=== PATIENT | female | born 1940 | race Caucasian/White ===

== ENCOUNTER 2020-07-18 17:44 | Inpatient (IN) | payer MEDICARE, OTHER, SELFPAY ==
[2020-07-18 17:48] VITALS: BP 156/75; PULSE 89; RESP 22; TEMP 37.1; O2SAT 99; BMI 27.4
[2020-07-18 18:50] LABS: Add Manual Diff / Slide Review NO; Basophils Absolute Auto 0 /uL (0-100); Basophils Percent Auto 0.2 % (0-2); Eosinophils Absolute Auto 0 /uL (0-450); Eosinophils Percent Auto 0.1 % (2-4); Hematocrit 32.2 % (36-46); Hemoglobin 10.5 g/dL (12.0-16.0); Lymphocytes Absolute Auto 400 /uL (1100-4500); Lymphocytes Percent Auto 2.8 % (25-40); Mean Corpuscular HGB Conc 32.7 % (30-36); Mean Corpuscular Volume 82.5 fL (80-100); Monocytes Absolute Auto 400 /uL (0-900); Monocytes Percent Auto 2.7 % (3-14); Neutrophils Absolute Auto 15100 /uL (1500-7000); Neutrophils Percent Auto 94.2 % (50-75); Red Cell Distribution Width 16.9 % (11.6-14.8)
[2020-07-18 19:00] LABS: Alanine Aminotransferase 571 IU/L (<35); Albumin 4.9 g/dL (3.5-5.0); Albumin Globulin Ratio 1.5 (1.0-2.8); Alkaline Phosphatase 183 U/L (38-126); BUN Creatinine Ratio 22.6 (6-22); Bilirubin Total 1.9 mg/dL (0.2-1.3); Blood Urea Nitrogen 14 mg/dL (7-17); Carbon Dioxide 25 mmol/L (22-32); Chloride 97 mmol/L (98-107); Estimated Glomerular Filt Rate > 60.0 mL/min (>60); Globulin 3.3 g/dL (1.7-4.1); Glucose 157 mg/dL (80-110); HEMOLYSIS < 15 (0-50); Potassium 4.1 mmol/L (3.4-5.1); Sodium 135 mmol/L (137-145); Total Protein 8.2 g/dL (6.3-8.2)
[2020-07-18 19:08] LABS: Aspartate Aminotransferase 884 IU/L (14-36)
--- NOTE | 2020-07-18 19:19 | ED.ABDPAIN ---
HPI - Abdominal Pain General Chief Complaint: Abdominal Pain Stated Complaint: thinks bleeding ulcer Time Seen by Provider: 07/18/20 18:54 Source: patient Mode of arrival: Ambulatory History of Present Illness HPI narrative: Patient complains 1 week of epigastric dull pain 6/10 waxing and waning. Has had vomiting 1 episode today. No diarrhea. No black or bloody stools. No dizziness. No chest pain no back pain. No prior history ulcers or acid reflux or endoscopy of the stomach. Colonoscopy years ago unremarkable per patient. No syncope. No cough cold congestion fever chills. No prior history of bowel obstruction. Pain is worse with palpation and hurts to take deep breath because epigastric pain. Causes shortness of breath. Related Data Home Medications Medication Instructions Recorded Confirmed LEVOTHYROXINE SODIUM (Synthroid) 0 PO Q DAY #0 08/01/08 Sertraline Hydrochloride (Zoloft) 0 PO Q DAY #0 08/01/08 [AVISTA] Q DAY #0 08/01/08 Allergies Allergy/AdvReac Type Severity Reaction Status Date / Time No Known Drug Allergies Allergy Verified 07/18/20 17:57 Review of Systems Review of Systems Narrative: GENERAL: Denies chills, fatigue, malaise, fever, sweats. HEENT: Denies sinus pain, ear pain, sore throat, difficulty swallowing, dizziness. RESPIRATORY: Complains of dyspnea, denies cough, wheezing, hemoptysis, sputum. CARDIOVASCULAR: Denies chest pain, palpitations, orthopnea, edema, GASTROINTESTINAL: Complains nausea, vomiting, abdominal pain, denies diarrhea, constipation, melena. : Denies dysuria, frequency, incontinence, hematuria, urinary retention. MUSCULOSKELETAL: denies weakness, joint pain, or bony pain SKIN: Denies rash, skin lesions NEUROLOGIC: Denies weakness, headache, numbness, change in speech, confusion, seizures, incoordination. PSYCHIATRIC: No concerning psychosocial issues. ROS Unobtainable: All systems reviewed & are unremarkable except as noted in HPI and below Patient History Medical History (Updated 07/19/20 @ 05:16 by JAZMIN Jaime) Alcohol dependence (Acute) Depression (Chronic) Essential hypertension (Chronic) HLD (hyperlipidemia) (Chronic) Surgical History (Updated 07/19/20 @ 05:16 by JAZMIN Jaime) Hx of cholecystectomy (Acute) Social History household members: none Smoking Status: Former smoker Smoking Status: Former smoker alcohol intake frequency: 3 or more drinks per day Alcohol type: wine and hard liquor Substance Use Type: does not use Exam Narrative Exam Narrative: GENERAL: patient appears stated age. Well-nourished, well-developed patient, in no distress, not toxic HEAD: Atraumatic. Normocephalic. EYES: Pupils equal round and reactive. Extraocular motions intact. No scleral icterus. No injection or drainage. ENT: Nose without bleeding, purulent drainage. Throat without erythema, tonsillar hypertrophy or exudate. Airway patent. NECK: Trachea midline. Non tender CARDIOVASCULAR: Regular rate and rhythm without murmurs, gallops, or rubs. RESPIRATORY: Clear to auscultation. Breath sounds equal bilaterally. No wheezes, rales, or rhonchi. GASTROINTESTINAL: Abdomen soft, reproducible tenderness epigastric area. no peritoneal signs, nondistended. nurse Hina at bedside, hemoccult neg, brown stool on glove, no bright red blood on glove EXTREMITIES: No edema or joint tenderness. BACK: Nontender without deformity or crepitance. No flank tenderness. NEURO: AOx4. SKIN: No rash or erythema of visible areas PSYCH: Not anxious, is cooperative Initial Vital Signs Initial Vital Signs: Vital Signs Temperature 98.7 F 07/18/20 17:48 Pulse Rate 89 07/18/20 17:48 Respiratory Rate 22 07/18/20 17:48 Blood Pressure 156/75 H 07/18/20 17:48 Pulse Oximetry 99 07/18/20 17:48 Course Course Course Narrative: Patient before admission started becoming restless and anxious. Tremulous. Likely alcohol withdrawal. Patient admits now more alcohol/1/liquor per night averaging 6 glasses per night. Last alcohol consumption 24 hours ago Decision to Admit Date: 07/18/20 Decision to Admit time: 21:37 Orders Ordered: ED Orders 07/18/20 20:42 Ammonia (NH3) Stat Acetaminophen (Tylenol) 650 mg PO Q6HR PRN PRN Reason: Fever/Mild Pain (1-3) Last Admin: 07/19/20 01:11 Dose: 650 mg Documented by: DANA Enoxaparin Sodium (Lovenox) 40 mg SUBCUT DAILY [facility] Folic Acid (Folic Acid) 1 mg PO DAILY [facility] Lorazepam (Ativan) 1 mg IV CIWAPRN PRN; Protocol PRN Reason: Alcohol Withdrawal Multivitamins (Tab-A-Ronaldo) 1 tab PO DAILY [facility] Naloxone HCl (Narcan) 0.2 mg IV Q2MIN PRN PRN Reason: Opiate Reversal Ondansetron HCl (Zofran) 4 mg IV Q6HR PRN PRN Reason: Nausea And Vomiting Pantoprazole Sodium (Protonix) 20 mg PO 0600 [facility] Thiamine HCl (Vitamin B-1) 100 mg PO DAILY [facility] Stop: 07/22/20 09:01 Discontinued Medications Al Hydrox/Mg Hydrox/Simethicone 20 ml/ Lidocaine HCl 15 ml 0 ml PO NOW ONE Stop: 07/18/20 19:22 Last Admin: 07/18/20 20:12 Dose: 10 ml Documented by: YESY Sodium Chloride (Normal Saline 0.9%) 1,000 mls @ 1,000 mls/hr IV BOLUS ONE Stop: 07/18/20 20:19 Last Infusion: 07/18/20 22:16 Dose: 1,000 mls/hr Documented by: Admin: 07/18/20 20:12 Dose: 1,000 mls/hr Documented by: YESY Magnesium Sulfate 2 gm/ Folic Acid 1 mg/ Thiamine HCl 100 mg / Multivitamins 10 ml/ Sodium Chloride 1,015.2 mls @ 125 mls/hr IV NOW ONE Stop: 07/19/20 04:49 Last Admin: 07/18/20 20:54 Dose: 125 mls/hr Documented by: YESY Lorazepam (Ativan) 1 mg IV NOW ONE Stop: 07/18/20 20:39 Last Admin: 07/18/20 20:42 Dose: 1 mg Documented by: YESY Ondansetron HCl (Zofran) 4 mg IV NOW ONE Stop: 07/18/20 19:21 Last Admin: 07/18/20 20:12 Dose: 4 mg Documented by: YESY Reevaluation(s) Reevaluation #1: Patient much more comfortable after Ativan. Not restless anxious or tremulous or sweating Time: 21:37 Consultations Consultation #1: Spoke with Tiffany israel, hospitalist, will admit, at this time white cell count nonspecific but may be demargination due to pain and withdrawal. Still awaiting urinalysis Time: 21:37 Vital Signs Vital signs: Vital Signs - 8 hr 07/18/20 17:48 07/18/20 20:32 Temperature 98.7 F Pulse Rate 89 105 H Respiratory Rate 22 22 Blood Pressure 156/75 H 138/62 Pulse Oximetry 99 93 MDM - Abdominal Pain Differential Diagnosis Differential diagnosis: Likely abdominal pain, diverticulitis, pancreatitis, small bowel obstruction and other (Gastritis/GERD) Lab Data Attestation: I reviewed the patient's lab results. Result diagrams: 07/18/20 18:38 07/18/20 18:38 Labs: Lab Results 07/18/20 07/18/20 07/18/20 Range/Units 18:38 18:38 18:38 WBC 16.0 H (4.5-11.0) X10^3/uL RBC 3.90 L (4.0-5.2) X10^6/uL Hgb 10.5 L (12.0-16.0) g/dL Hct 32.2 L (36-46) % MCV 82.5 (80-100) fL MCH 27.0 (26-34) PG MCHC 32.7 (30-36) % RDW 16.9 H (11.6-14.8) % Plt Count 184 (150-400) X10^3/uL Neut % (Auto) 94.2 H (50-75) % Lymph % (Auto) 2.8 L (25-40) % [place] % (Auto) 2.7 L (3-14) % Eos % (Auto) 0.1 L (2-4) % Baso % (Auto) 0.2 (0-2) % Neut # (Auto) 21152 H (6675-5186) /uL Lymph # (Auto) 400 L (4791-9762) /uL [place] # (Auto) 400 (0-900) /uL Eos # (Auto) 0 (0-450) /uL Baso # (Auto) 0 (0-100) /uL PT Cancelled INR Cancelled APTT Cancelled Sodium 135 L (137-145) mmol/L Potassium 4.1 (3.4-5.1) mmol/L Chloride 97 L (98-107) mmol/L Carbon Dioxide 25 (22-32) mmol/L BUN 14 (7-17) mg/dL Creatinine 0.62 (0.52-1.04) mg/dL Estimated GFR > 60.0 (>60) mL/min BUN/Creatinine Ratio 22.6 H (6-22) Glucose 157 H (80-110) mg/dL Calcium 10.0 (8.4-10.2) mg/dL Total Bilirubin 1.9 H (0.2-1.3) mg/dL AST 884 H (14-36) IU/L ALT 571 H (<35) IU/L Alkaline Phosphatase 183 H (38-126) U/L Ammonia (9-30) umol/L Total Creatine Kinase (30-135) U/L CK-MB (CK-2) CK-MB (CK-2) Rel Index Troponin I (0.01-0.034) ng/mL Total Protein 8.2 (6.3-8.2) g/dL Albumin 4.9 (3.5-5.0) g/dL Globulin 3.3 (1.7-4.1) g/dL Albumin/Globulin Ratio 1.5 (1.0-2.8) 07/18/20 07/18/20 07/18/20 Range/Units 18:38 19:27 20:42 WBC (4.5-11.0) X10^3/uL RBC (4.0-5.2) X10^6/uL Hgb (12.0-16.0) g/dL Hct (36-46) % MCV (80-100) fL MCH (26-34) PG MCHC (30-36) % RDW (11.6-14.8) % Plt Count (150-400) X10^3/uL Neut % (Auto) (50-75) % Lymph % (Auto) (25-40) % [place] % (Auto) (3-14) % Eos % (Auto) (2-4) % Baso % (Auto) (0-2) % Neut # (Auto) (3765-4511) /uL Lymph # (Auto) (4712-2521) /uL [place] # (Auto) (0-900) /uL Eos # (Auto) (0-450) /uL Baso # (Auto) (0-100) /uL PT 11.6 INR 1.0 APTT 28 Sodium (137-145) mmol/L Potassium (3.4-5.1) mmol/L Chloride (98-107) mmol/L Carbon Dioxide (22-32) mmol/L BUN (7-17) mg/dL Creatinine (0.52-1.04) mg/dL Estimated GFR (>60) mL/min BUN/Creatinine Ratio (6-22) Glucose (80-110) mg/dL Calcium (8.4-10.2) mg/dL Total Bilirubin (0.2-1.3) mg/dL AST (14-36) IU/L ALT (<35) IU/L Alkaline Phosphatase (38-126) U/L Ammonia 12 (9-30) umol/L Total Creatine Kinase 70 (30-135) U/L CK-MB (CK-2) TNP CK-MB (CK-2) Rel Index TNP Troponin I < 0.012 (0.01-0.034) ng/mL Total Protein (6.3-8.2) g/dL Albumin (3.5-5.0) g/dL Globulin (1.7-4.1) g/dL Albumin/Globulin Ratio (1.0-2.8) Imaging Data Chest x-ray: Radiologist's Impression: [place] [address] XRay Report Signed Patient: Marcelo Paniagua#: [id number] : 2Acct:[id number] Age/Sex: 79 / FDate of Service: 07/18/20 Loc: ED Accession Number: [id number] Procedure: XR chest 1V Ordering Provider: Irineo Hollins MD PROCEDURE: XR CHEST 1V INDICATIONS: Short of breath TECHNIQUE: One view of the chest was acquired. COMPARISON: None. FINDINGS: Surgical changes and devices: None. Lungs and pleura: No acute consolidation. Mild central perihilar interstitial prominence is noted, which is nonspecific. No pleural effusions or pneumothorax. Mediastinum: Mediastinal contours appear normal. Heart size is normal. Bones and chest wall: No suspicious bony lesions. Overlying soft tissues appear unremarkable. IMPRESSION: Mild central perihilar interstitial prominence is nonspecific but may be related to mild pulmonary vascular congestion. Dictated by: Lucho Arenas M.D. on 07/18/2020 at 19:52 Approved by: Lucho Arenas M.D. on 07/18/2020 at 19:53 CT scan - abdomen/pelvis: Radiologist's Impression: [address] [address] [address] Scan Report Signed Patient: Luzma PaniaguaMR#: [id number] : 2Acct:[id number] Age/Sex: 79 / FDate of Service: 07/18/20 Loc: ED Accession Number: [id number] Procedure: CT abdomen pelvis w con Ordering Provider: Irineo Hollins MD PROCEDURE: CT ABDOMEN PELVIS W CON INDICATIONS: IV contrast only/epigastric pain TECHNIQUE: After the administration of intravenous contrast, 5 mm thick sections acquired from the diaphragm to the symphysis. 5 mm coronal and sagittal reformats were acquired. For radiation dose reduction, the following was used: automated exposure control, adjustment of mA and/or kV according to patient size. COMPARISON: None. FINDINGS: Image quality: Excellent. ABDOMEN: Lung bases: Lung bases are clear. Heart size is normal. Solid organs: Liver is normal in size and enhancement. The gallbladder is surgically absent. Mild dilatation of the common bile duct and the central intrahepatic biliary ducts is most likely secondary to prior cholecystectomy. Pancreas enhances normally. Spleen is normal in size and enhancement. No adrenal nodules. Kidneys demonstrate normal size and enhancement, without hydronephrosis. Subcentimeter hypodensities in both kidneys are too small to characterize but most likely represent cysts. Peritoneum and bowel: A few diverticula are seen in the colon without signs of acute diverticulitis. Mild thickening of the colon wall may be secondary to underdistention or mild colitis. No free fluid or air. Nodes and vessels: No retroperitoneal or mesenteric adenopathy by size criteria. Aorta and inferior vena cava are normal in size. Mild atherosclerotic calcifications are seen in the aorta. Miscellaneous: No ventral hernias. PELVIS: Genitourinary: Bladder wall thickness is normal. The uterus is normal in size. No adnexal mass is seen. Miscellaneous: No inguinal hernias or adenopathy. Bones: No suspicious bony lesions. No vertebral body compression fractures. Degenerative changes are seen in the pubic symphysis and the included spine. IMPRESSION: 1. Status post cholecystectomy. Mild dilatation of the intrahepatic and extrahepatic bile ducts is most likely secondary to the prior cholecystectomy, but correlation with clinical laboratory findings is recommended to exclude obstruction. 2. Mild thickening of the wall the colon may be related to underdistention or mild nonspecific colitis. Dictated by: Lucho Arenas M.D. on 07/18/2020 at 20:03 Approved by: Lucho Arenas M.D. on 07/18/2020 at 20:08 ECG Data Attestation: I personally reviewed and interpreted this ECG as follows: Interpretation: Normal sinus rhythm no ST elevation. MDM Narrative Medical decision making narrative: Appropriate for admission. Patient had a drive here from [facility]. No way home. Also during course of stay patient became a little confused likely alcohol withdrawal. However mentating and awake alert oriented x4. CIWA 15 Discharge Plan Departure Patient Disposition: Admitted as Observation Clinical Impression: Abdominal pain Qualifiers: Abdominal location: epigastric Qualified Code(s): R10.13 - Epigastric pain Alcohol withdrawal Qualifiers: Complication of substance-induced condition: with unspecified complication Qualified Code(s): F10.239 - Alcohol dependence with withdrawal, unspecified Discharge Date/Time: 07/18/20 22:39 Admit Date/Time: 07/18/20 20:46 Admit Provider: Ingris Israel
[2020-07-18 19:22] LABS: Platelet Count 184 X10^3/uL (150-400)
[2020-07-18 19:23] LABS: Creatine Kinase 70 U/L (30-135)
--- NOTE | 2020-07-18 19:31 | DI.CT.S_ITS ---
PROCEDURE: CT ABDOMEN PELVIS W CON INDICATIONS: IV contrast only/epigastric pain TECHNIQUE: After the administration of intravenous contrast, 5 mm thick sections acquired from the diaphragm to the symphysis. 5 mm coronal and sagittal reformats were acquired. For radiation dose reduction, the following was used: automated exposure control, adjustment of mA and/or kV according to patient size. COMPARISON: None. FINDINGS: Image quality: Excellent. ABDOMEN: Lung bases: Lung bases are clear. Heart size is normal. Solid organs: Liver is normal in size and enhancement. The gallbladder is surgically absent. Mild dilatation of the common bile duct and the central intrahepatic biliary ducts is most likely secondary to prior cholecystectomy. Pancreas enhances normally. Spleen is normal in size and enhancement. No adrenal nodules. Kidneys demonstrate normal size and enhancement, without hydronephrosis. Subcentimeter hypodensities in both kidneys are too small to characterize but most likely represent cysts. Peritoneum and bowel: A few diverticula are seen in the colon without signs of acute diverticulitis. Mild thickening of the colon wall may be secondary to underdistention or mild colitis. No free fluid or air. Nodes and vessels: No retroperitoneal or mesenteric adenopathy by size criteria. Aorta and inferior vena cava are normal in size. Mild atherosclerotic calcifications are seen in the aorta. Miscellaneous: No ventral hernias. PELVIS: Genitourinary: Bladder wall thickness is normal. The uterus is normal in size. No adnexal mass is seen. Miscellaneous: No inguinal hernias or adenopathy. Bones: No suspicious bony lesions. No vertebral body compression fractures. Degenerative changes are seen in the pubic symphysis and the included spine. IMPRESSION: 1. Status post cholecystectomy. Mild dilatation of the intrahepatic and extrahepatic bile ducts is most likely secondary to the prior cholecystectomy, but correlation with clinical laboratory findings is recommended to exclude obstruction. 2. Mild thickening of the wall the colon may be related to underdistention or mild nonspecific colitis. Dictated by: Lucho Arenas M.D. on 07/18/2020 at 20:03 Approved by: Lucho Arenas M.D. on 07/18/2020 at 20:08
--- NOTE | 2020-07-18 19:32 | DI.RAD.S_ITS ---
PROCEDURE: XR CHEST 1V INDICATIONS: Short of breath TECHNIQUE: One view of the chest was acquired. COMPARISON: None. FINDINGS: Surgical changes and devices: None. Lungs and pleura: No acute consolidation. Mild central perihilar interstitial prominence is noted, which is nonspecific. No pleural effusions or pneumothorax. Mediastinum: Mediastinal contours appear normal. Heart size is normal. Bones and chest wall: No suspicious bony lesions. Overlying soft tissues appear unremarkable. IMPRESSION: Mild central perihilar interstitial prominence is nonspecific but may be related to mild pulmonary vascular congestion. Dictated by: Lucho Arenas M.D. on 07/18/2020 at 19:52 Approved by: Lucho Arenas M.D. on 07/18/2020 at 19:53
[2020-07-18 19:36] LABS: Troponin I < 0.012 ng/mL (0.01-0.034)
[2020-07-18 19:41] LABS: Prothrombin Time 11.6 SECONDS (10.1-12.7)
[2020-07-18 19:44] LABS: PTT Partial Thromboplastin Tim 28 SECONDS (26.4-36.2)
[2020-07-18] MEDS: MAG HYDROX/ALUMINUM/SIMETH SUS 20 ML, LIDOCAINE VISCOUS 2% 15 ML PO (20:12)
[2020-07-18] MEDS: SODIUM CHLORIDE 0.9% 1,000 ML 1000 ML IV (20:12)
[2020-07-18] MEDS: ONDANSETRON 4 MG/2 ML INJ IV (20:12)
[2020-07-18 20:32] VITALS: BP 138/62; PULSE 105; RESP 22; O2SAT 93
[2020-07-18] MEDS: LORazepam 2 MG/ML INJ 1 MG IV (20:42)
[2020-07-18] MEDS: MAGNESIUM SULFATE 2 GM, FOLIC ACID 1 MG, THIAMINE 100 MG, MULTIVITAMIN 10 ML in SODIUM ... IV (20:54)
[2020-07-18 21:12] VITALS: BP 141/62; PULSE 100; RESP 20; O2SAT 97
[2020-07-18 21:14] LABS: Ammonia (NH3) 12 umol/L (9-30)
[2020-07-18 21:34] LABS: COVID19 -Nasal RAPID Negative (Negative)
--- NOTE | 2020-07-18 22:07 | PC.NURSE ---
customer sales specialist at bedside for eval
[2020-07-18 22:38] VITALS: BP 133/60; PULSE 98; RESP 22; O2SAT 98
[2020-07-18 22:43] VITALS: BMI 38.8
[2020-07-18 23:53] VITALS: O2SAT 94
[2020-07-19] VITALS (12 sets, daily range): BP systolic 122–147; BP diastolic 58–67; PULSE 80–98; RESP 12–36; TEMP 36–37.5; O2SAT 94–99
[2020-07-19] MEDS: ACETAMINOPHEN 325 MG TABLET 650 MG PO ×2 (01:11→11:34)
[2020-07-19 01:58] LABS: Bacteria Urine None Seen; WBC Urine None Seen (0-5/HPF)
[2020-07-19 02:12] LABS: Culture Indicated Urine Cult Not Indicated; RBC Urine 0-1/HPF (0-5/HPF)
--- NOTE | 2020-07-19 05:03 | P.HP_ITS ---
History of Present Illness History of Present Illness Date Patient Seen: 07/18/20 Time Patient Seen: 22:15 Chief complaint: thinks bleeding ulcer Narrative: Luzma Oquendo is a pleasant 79 y.o. female resident of [facility] with hypertension, hyperlipidemia, hypothyroidism and depression who presented with abdominal pain and had one episode of vomiting while in the ED. She states she had one isolated dark stool 2 weeks ago. She thought she may have a stomach ulcer. During her visit with the ED provider, she began to tremor, then admitted to the provider that she was a heavy drinker and had not drank in a day and a half and was diagnosed with alcohol withdrawal. She states she has depression and that with the COVID-19 social distancing, her drinking has worsened. She denies fever, sweats or chills, shortness of breath, chest pain, dysurea, diarrhea or constipation. In the ED the CT of the abdomen and chest reported possible mild colitis, but did not report any ulcerations. Temperature was 98.9?, blood pressure 142/64, heart rate 90 respiratory rate of 12 oxygen saturation 97% on room air, she weighs 102.6 kg BMI of 38.8. She does have a elevated WBC at 16,000, RBC 3.9, hemoglobin 10.5, hematocrit 32.2, platelet count 184, she does have a significant left shift with a neutrophil count of 15,000, coag studies are normal, sodium 135, potassium 4.1, chloride 97, bicarb 25, BUN 14, creatinine 0.62, GFR is greater than 60, she has a glucose of 157, total bilirubin is 1.9, AST 884, ALT 571, alk-phos 183, ammonia is 12, lipase is pending, covid -19 is negative, urinalysis is negative for a UTI. Patient History Medical History (Updated 07/19/20 @ 05:16 by JAZMIN Jaime) Alcohol dependence (Acute) Depression (Chronic) Essential hypertension (Chronic) HLD (hyperlipidemia) (Chronic) Surgical History (Updated 07/19/20 @ 05:16 by JAZMIN Jaime) Hx of cholecystectomy (Acute) Family & Social History Social History: household members none Prior Living Arrangements House Safety & Behavioral: Feels Safe in Current Yes Environment Been Physically Hurt or No Threatened By a Person Suicidal Ideation Description Vague Suicide Plan Description No Plan Tobacco & Substance use: Smoking Status Former smoker alcohol intake frequency 3-6 or more drinks per day Substance Use Type does not use Meds Home Medications and Allergies Home Medications Medication Instructions Recorded Confirmed Type LEVOTHYROXINE SODIUM (Synthroid) 0 PO Q DAY #0 08/01/08 History Sertraline Hydrochloride (Zoloft) 0 PO Q DAY #0 08/01/08 History [AVISTA] Q DAY #0 08/01/08 History Allergies Allergy/AdvReac Type Severity Reaction Status Date / Time No Known Drug Allergies Allergy Verified 07/18/20 17:57 Review of Systems Review of Systems ROS: Yes All systems reviewed with the patient and are negative except as otherwise documented Exam Vital Signs (past 8 hours): - 07/18/20 21:12 07/18/20 22:38 07/18/20 23:53 Temperature Pulse Rate 100 H 98 H Respiratory Rate 20 22 Blood Pressure 141/62 H 133/60 Pulse Oximetry 97 98 94 07/19/20 00:38 07/19/20 04:00 Temperature 98.4 F 98.9 F Pulse Rate 90 90 Respiratory Rate 16 12 Blood Pressure 147/67 H 142/64 H Pulse Oximetry 94 97 Oxygen Delivery Method Room Air,CPAP Oxygen Flow Rate 0 Narrative Exam Narrative: Gen: Alert, oriented, obese 79 y.o. female, anxious HEENT: normocephalic, atraumatic, conjunctiva clear, sclera non-icteric, oral mucosa pink and moist Neck: supple, full ROM, no JVD, trachea is midline Resp: Lungs CTA, non-labored breathing CV: RRR, no murmur or rubs Abd: distended, mildly-tender, normoactive BTs Skin: no lesions or rashes, dry and intact Neuro: Alert and oriented X 4 w/no focal deficits. Speech clear and coherent. Extremities: moves all 4 extremities, is ambulatory, negative Freeman?s sign Psyche: normal mood and affect Objective Labs Result Diagrams: 07/18/20 18:38 07/18/20 18:38 Labs: Laboratory Results - last 24 hr 07/18/20 07/18/20 07/18/20 18:38 18:38 18:38 WBC 16.0 H RBC 3.90 L Hgb 10.5 L Hct 32.2 L MCV 82.5 MCH 27.0 MCHC 32.7 RDW 16.9 H Plt Count 184 Neut % (Auto) 94.2 H Lymph % (Auto) 2.8 L [place] % (Auto) 2.7 L Eos % (Auto) 0.1 L Baso % (Auto) 0.2 Neut # (Auto) 86038 H Lymph # (Auto) 400 L [place] # (Auto) 400 Eos # (Auto) 0 Baso # (Auto) 0 PT Cancelled INR Cancelled APTT Cancelled Sodium 135 L Potassium 4.1 Chloride 97 L Carbon Dioxide 25 BUN 14 Creatinine 0.62 Estimated GFR > 60.0 BUN/Creatinine Ratio 22.6 H Glucose 157 H Calcium 10.0 Total Bilirubin 1.9 H AST 884 H ALT 571 H Alkaline Phosphatase 183 H Ammonia Total Creatine Kinase CK-MB (CK-2) CK-MB (CK-2) Rel Index Troponin I Total Protein 8.2 Albumin 4.9 Globulin 3.3 Albumin/Globulin Ratio 1.5 Urine RBC Urine WBC Urine Bacteria Ur Culture Indicated? Nasal Screen MRSA (PCR) COVID-19 PCR 07/18/20 07/18/20 07/18/20 18:38 19:27 20:42 WBC RBC Hgb Hct MCV MCH MCHC RDW Plt Count Neut % (Auto) Lymph % (Auto) [place] % (Auto) Eos % (Auto) Baso % (Auto) Neut # (Auto) Lymph # (Auto) [place] # (Auto) Eos # (Auto) Baso # (Auto) PT 11.6 INR 1.0 APTT 28 Sodium Potassium Chloride Carbon Dioxide BUN Creatinine Estimated GFR BUN/Creatinine Ratio Glucose Calcium Total Bilirubin AST ALT Alkaline Phosphatase Ammonia 12 Total Creatine Kinase 70 CK-MB (CK-2) TNP CK-MB (CK-2) Rel Index TNP Troponin I < 0.012 Total Protein Albumin Globulin Albumin/Globulin Ratio Urine RBC Urine WBC Urine Bacteria Ur Culture Indicated? Nasal Screen MRSA (PCR) COVID-19 PCR 07/18/20 07/18/20 07/19/20 21:15 22:35 01:20 WBC RBC Hgb Hct MCV MCH MCHC RDW Plt Count Neut % (Auto) Lymph % (Auto) [place] % (Auto) Eos % (Auto) Baso % (Auto) Neut # (Auto) Lymph # (Auto) [place] # (Auto) Eos # (Auto) Baso # (Auto) PT INR APTT Sodium Potassium Chloride Carbon Dioxide BUN Creatinine Estimated GFR BUN/Creatinine Ratio Glucose Calcium Total Bilirubin AST ALT Alkaline Phosphatase Ammonia Total Creatine Kinase CK-MB (CK-2) CK-MB (CK-2) Rel Index Troponin I Total Protein Albumin Globulin Albumin/Globulin Ratio Urine RBC 0-1/hpf Urine WBC None seen Urine Bacteria None seen Ur Culture Indicated? Cult not indicated Nasal Screen MRSA (PCR) Negative for mrsa COVID-19 PCR Negative Assessment & Plan Assessment & Plan narrative: Luzma Paniagua will admitted for alcohol withdrawal and further workup of her abdominal pain and elevated transaminases. Alcohol withdrawal, acute, present on admission -CIWA protocol -She was adminstered an IV banana bag and will start oral folic acid, thiamine and a multi-vitamin in the am Elevated transaminases, acute and present on admission -Acute hepatitis panel is pending -Lipid panel and lipase pending, suspect pancreatitis, though CT did not find a ny abnormalities Hypothyroidism, chronic -Continue home dose of levothyroxine 75 mcg daily Hyperlipidemia, chronic -See above regarding lipid panel -Continue home dose of atorvastatin 20 mg -depending on cause of her increased liver enzymes, may require changing lipid agent to a bile acid sequesterant or zetia VTE prophylaxis: Wells risk score: 0 Enoxaparin 40 mg subQ daily Consults: none Patient is admitted under inpatient status with expected length of stay greater than 2 midnights due to severity of presenting symptoms, risk of adverse event, and complexity of treatment plan. FEN: IV NS at 100 ml/hour, heart healty diet, CMP and magnesium in the am. Dispo: probable discharge to home Code Status: Full Code as discussed with patient Scores Wells' Criteria for PE Clinical signs and symptoms of DVT: No PE is #1 Dx or equally likely: No Heart rate > 100: No Immobilization at least 3 days or surg in previous 4 weeks: No History of PE or DVT: No Hemoptysis: No Malignancy w/Treatment within 6 months or palliative: No Wells' PE Score total: 0 Quality VTE Deep Vein Thrombosis/Pulmonary Embolism Present on Admission: No
[2020-07-19] MEDS: PANTOPRAZOLE 20 MG TABLET PO ×2 (05:28→11:31)
[2020-07-19] MEDS: LORazepam 2 MG/ML INJ 1 MG IV ×4 (05:29→14:05)
[2020-07-19 05:31] LABS: Add Manual Diff / Slide Review NO; Basophils Absolute Auto 0 /uL (0-100); Basophils Percent Auto 0.1 % (0-2); Eosinophils Absolute Auto 0 /uL (0-450); Hematocrit 27.2 % (36-46); Hemoglobin 8.8 g/dL (12.0-16.0); Lymphocytes Absolute Auto 200 /uL (1100-4500); Lymphocytes Percent Auto 1.7 % (25-40); Mean Corpuscular HGB Conc 32.4 % (30-36); Mean Corpuscular Hemoglobin 26.5 PG (26-34); Mean Corpuscular Volume 81.9 fL (80-100); Monocytes Absolute Auto 200 /uL (0-900); Monocytes Percent Auto 1.5 % (3-14); Neutrophils Absolute Auto 12100 /uL (1500-7000); Neutrophils Percent Auto 96.7 % (50-75); Platelet Count 261 X10^3/uL (150-400); Red Blood Cell Count 3.32 X10^6/uL (4.0-5.2); Red Cell Distribution Width 17.2 % (11.6-14.8); White Blood Cell Count 12.5 X10^3/uL (4.5-11.0)
[2020-07-19 05:32] LABS: Alanine Aminotransferase 436 IU/L (<35); Albumin 3.9 g/dL (3.5-5.0); Albumin Globulin Ratio 1.4 (1.0-2.8); Alkaline Phosphatase 128 U/L (38-126); Aspartate Aminotransferase 437 IU/L (14-36); BUN Creatinine Ratio 16.1 (6-22); Bilirubin Total 2.9 mg/dL (0.2-1.3); Blood Urea Nitrogen 10 mg/dL (7-17); Calcium 8.8 mg/dL (8.4-10.2); Carbon Dioxide 28 mmol/L (22-32); Chloride 100 mmol/L (98-107); Cholesterol 161 mg/dL (140-199); Estimated Glomerular Filt Rate > 60.0 mL/min (>60); Globulin 2.7 g/dL (1.7-4.1); Glucose 147 mg/dL (80-110); HDL Cholesterol 93 mg/dL (40-60); HEMOLYSIS < 15 (0-50); LDL Cholesterol Calculated 56 mg/dL (<100); Magnesium 2.8 mg/dL (1.6-2.3); Potassium 4.2 mmol/L (3.4-5.1); Sodium 134 mmol/L (137-145); Total Protein 6.6 g/dL (6.3-8.2); Triglycerides 62 mg/dL (35-150)
[2020-07-19 06:14] LABS: Thyroid Stimulating Hormone 1.58 uIU/mL (0.47-4.68)
[2020-07-19 06:26] LABS: Lipase 55 U/L (23-300)
[2020-07-19 06:29] LABS: Hemoglobin A1C% w Est Avg Glu 5.8 % (4.0-6.0)
[2020-07-19] MEDS: FOLIC ACID 1 MG TABLET PO (11:32)
[2020-07-19] MEDS: THIAMINE 100 MG TABLET PO (11:32)
[2020-07-19] MEDS: MULTIVITAMIN 1 TABLET 1 TAB PO (12:26)
--- NOTE | 2020-07-19 12:28 | PC.NURSE ---
Addendum entered by Dahlia Richter R.N. 07/19/20 15:26: Edit Spo2 96% with Cpap, not 06% Addendum entered by Dahlia Richter R.N. 07/19/20 14:13: INcreased agitation noted after lunch, Pt is fixated on CPAP tighening and hair bun placement, multiple times yelling at this RN, You dont even know how to do this! Noted increased SOB/WOB, occasional wheeze Spo2 06% on RA and CPAP. But agitation and anxiety worsening symptoms. Medicated for increased CIWA, and able to redirect patient and assist to bed with CPAP in place. Call ight in reach, BA active. Original Note: AM shift Pt oriented and comfortable at start of shift, recently had been medicated for pain, denies any needs at present. On recheck, Pt up in room, bed alarm active, removed IV and bleeding. Disoriented, unsure of where she is at, doesnot recall admission through ER. Redirectable, repeat CIWA obtained, drenched in sweat, shakes to jeovany UE noted. Medicated per Emar for total of 2 mg IV Ativan. After IV replaced, Pt CIWA with substantial improvement. No need for additional dosing. Resting comfortably at next check with CPAP from home in place.
--- NOTE | 2020-07-19 15:01 | DI.US.S_ITS ---
PROCEDURE: US ABDOMEN COMPLETE INDICATIONS: Ascites with poss paracentesis, cirrhosis?, Abd pain TECHNIQUE: Real-time scanning was performed of the abdominal and retroperitoneal organs, with image documentation. COMPARISON: [facility], CT, CT ABDOMEN PELVIS W CON, 07/18/2020, 19:32. FINDINGS: This study is limited by body habitus. Study is further limited by bowel gas. Liver: The liver is overall not well seen. It measures at the upper limits of normal for size. The liver demonstrates mildly increased echogenicity. No focal liver lesions are detected. Gallbladder: Has been removed Biliary ducts: Intrahepatic bile ducts are dilated. Mildly dilated at 12 mm Normal is 6-7 mm or less in diameter, or 10 mm or less post-cholecystectomy. Pancreas: Pancreas appears prominent. Spleen: Spleen is normal in size and homogeneous in echotexture. Kidneys: Kidneys are normal in size and echotexture. Right kidney measures 11.7 cm long; left kidney measures 10.3 cm long. No hydronephrosis or nephrolithiasis. No solid masses. Aorta: Not seen, obscured by overlying bowel gas. Iliacs: Not seen, obscured by overlying bowel gas. IVC: Intrahepatic inferior vena cava is patent. Miscellaneous: No free abdominal fluid. IMPRESSION: No findings of ascites can be seen. Status post cholecystectomy, with mild biliary dilatation. If clinically appropriate, an MRCP could be considered for further evaluation (assuming that there is no contraindication to MRI). The liver demonstrates increased echogenicity. This finding is nonspecific, yet it is most commonly attributed to fatty infiltration. However, differential diagnosis includes cirrhosis and fibrosis in this patient. Dictated by: Maurice Ulloa M.D. on 07/19/2020 at 16:03 Approved by: Maurice Ulloa M.D. on 07/19/2020 at 16:05
--- NOTE | 2020-07-19 15:17 | P.PN_ITS ---
Exam Vital Signs (past 8 hours): - 07/19/20 08:00 07/19/20 12:00 07/19/20 12:05 Temperature 98.2 F 98.5 F Pulse Rate 82 86 92 H Respiratory Rate 20 21 24 Blood Pressure 128/58 L 127/60 127/60 Pulse Oximetry 96 97 07/19/20 14:16 Temperature Pulse Rate Respiratory Rate Blood Pressure Pulse Oximetry 96 Oxygen Delivery Method Room Air Oxygen Flow Rate 0 Objective Labs Result Diagrams: 07/19/20 04:44 07/19/20 04:44 Labs: Laboratory Results - last 24 hr 07/18/20 07/18/20 07/18/20 18:38 18:38 18:38 WBC 16.0 H RBC 3.90 L Hgb 10.5 L Hct 32.2 L MCV 82.5 MCH 27.0 MCHC 32.7 RDW 16.9 H Plt Count 184 Neut % (Auto) 94.2 H Lymph % (Auto) 2.8 L [place] % (Auto) 2.7 L Eos % (Auto) 0.1 L Baso % (Auto) 0.2 Neut # (Auto) 04624 H Lymph # (Auto) 400 L [place] # (Auto) 400 Eos # (Auto) 0 Baso # (Auto) 0 PT Cancelled INR Cancelled APTT Cancelled Sodium 135 L Potassium 4.1 Chloride 97 L Carbon Dioxide 25 BUN 14 Creatinine 0.62 Estimated GFR > 60.0 BUN/Creatinine Ratio 22.6 H Glucose 157 H Hemoglobin A1c Calcium 10.0 Magnesium Total Bilirubin 1.9 H AST 884 H ALT 571 H Alkaline Phosphatase 183 H Ammonia Total Creatine Kinase CK-MB (CK-2) CK-MB (CK-2) Rel Index Troponin I Total Protein 8.2 Albumin 4.9 Globulin 3.3 Albumin/Globulin Ratio 1.5 Triglycerides Cholesterol LDL Cholesterol, Calc HDL Cholesterol Lipase TSH Urine RBC Urine WBC Urine Bacteria Ur Culture Indicated? Nasal Screen MRSA (PCR) COVID-19 PCR 07/18/20 07/18/20 07/18/20 18:38 19:27 20:42 WBC RBC Hgb Hct MCV MCH MCHC RDW Plt Count Neut % (Auto) Lymph % (Auto) [place] % (Auto) Eos % (Auto) Baso % (Auto) Neut # (Auto) Lymph # (Auto) [place] # (Auto) Eos # (Auto) Baso # (Auto) PT 11.6 INR 1.0 APTT 28 Sodium Potassium Chloride Carbon Dioxide BUN Creatinine Estimated GFR BUN/Creatinine Ratio Glucose Hemoglobin A1c Calcium Magnesium Total Bilirubin AST ALT Alkaline Phosphatase Ammonia 12 Total Creatine Kinase 70 CK-MB (CK-2) TNP CK-MB (CK-2) Rel Index TNP Troponin I < 0.012 Total Protein Albumin Globulin Albumin/Globulin Ratio Triglycerides Cholesterol LDL Cholesterol, Calc HDL Cholesterol Lipase TSH Urine RBC Urine WBC Urine Bacteria Ur Culture Indicated? Nasal Screen MRSA (PCR) COVID-19 PCR 07/18/20 07/18/20 07/19/20 21:15 22:35 01:20 WBC RBC Hgb Hct MCV MCH MCHC RDW Plt Count Neut % (Auto) Lymph % (Auto) [place] % (Auto) Eos % (Auto) Baso % (Auto) Neut # (Auto) Lymph # (Auto) [place] # (Auto) Eos # (Auto) Baso # (Auto) PT INR APTT Sodium Potassium Chloride Carbon Dioxide BUN Creatinine Estimated GFR BUN/Creatinine Ratio Glucose Hemoglobin A1c Calcium Magnesium Total Bilirubin AST ALT Alkaline Phosphatase Ammonia Total Creatine Kinase CK-MB (CK-2) CK-MB (CK-2) Rel Index Troponin I Total Protein Albumin Globulin Albumin/Globulin Ratio Triglycerides Cholesterol LDL Cholesterol, Calc HDL Cholesterol Lipase TSH Urine RBC 0-1/hpf Urine WBC None seen Urine Bacteria None seen Ur Culture Indicated? Cult not indicated Nasal Screen MRSA (PCR) Negative for mrsa COVID-19 PCR Negative 07/19/20 07/19/20 07/19/20 04:44 04:44 04:44 WBC 12.5 H RBC 3.32 L Hgb 8.8 L Hct 27.2 L MCV 81.9 MCH 26.5 MCHC 32.4 RDW 17.2 H Plt Count 261 Neut % (Auto) 96.7 H Lymph % (Auto) 1.7 L [place] % (Auto) 1.5 L Eos % (Auto) 0.0 L Baso % (Auto) 0.1 Neut # (Auto) 26193 H Lymph # (Auto) 200 L [place] # (Auto) 200 Eos # (Auto) 0 Baso # (Auto) 0 PT INR APTT Sodium 134 L Potassium 4.2 Chloride 100 Carbon Dioxide 28 BUN 10 Creatinine 0.62 Estimated GFR > 60.0 BUN/Creatinine Ratio 16.1 Glucose 147 H Hemoglobin A1c Calcium 8.8 Magnesium 2.8 H Total Bilirubin 2.9 H AST 437 H ALT 436 H Alkaline Phosphatase 128 H Ammonia Total Creatine Kinase CK-MB (CK-2) CK-MB (CK-2) Rel Index Troponin I Total Protein 6.6 Albumin 3.9 Globulin 2.7 Albumin/Globulin Ratio 1.4 Triglycerides 62 Cholesterol 161 LDL Cholesterol, Calc 56 HDL Cholesterol 93 H Lipase TSH 1.58 Urine RBC Urine WBC Urine Bacteria Ur Culture Indicated? Nasal Screen MRSA (PCR) COVID-19 PCR 07/19/20 07/19/20 04:44 04:44 WBC RBC Hgb Hct MCV MCH MCHC RDW Plt Count Neut % (Auto) Lymph % (Auto) [place] % (Auto) Eos % (Auto) Baso % (Auto) Neut # (Auto) Lymph # (Auto) [place] # (Auto) Eos # (Auto) Baso # (Auto) PT INR APTT Sodium Potassium Chloride Carbon Dioxide BUN Creatinine Estimated GFR BUN/Creatinine Ratio Glucose Hemoglobin A1c 5.8 Calcium Magnesium Total Bilirubin AST ALT Alkaline Phosphatase Ammonia Total Creatine Kinase CK-MB (CK-2) CK-MB (CK-2) Rel Index Troponin I Total Protein Albumin Globulin Albumin/Globulin Ratio Triglycerides Cholesterol LDL Cholesterol, Calc HDL Cholesterol Lipase 55 TSH Urine RBC Urine WBC Urine Bacteria Ur Culture Indicated? Nasal Screen MRSA (PCR) COVID-19 PCR Quality VTE Deep Vein Thrombosis/Pulmonary Embolism Present on Admission: No
[2020-07-19] MEDS: FUROSEMIDE 20 MG/2 ML VIAL IV (15:46)
[2020-07-19] MEDS: SPIRONOLACTONE 25 MG TABLET PO (15:46)
[2020-07-19 15:58] LABS: Procalcitonin 2.79 ng/mL (<0.5)
[2020-07-19] MEDS: chlordiazePOXIDE 25 MG CAPSULE 50 MG PO (16:06)
--- NOTE | 2020-07-19 16:31 | CM.SWNOTE ---
INTERVENTIONAL NEURORADIOLOGIST Note This INTERVENTIONAL NEURORADIOLOGIST requested to consult and follow for DCP needs; this 79 yo female, resident of [facility], presents w/abd pain and began to w/d from alcohol while in the ED, CIWA 15 this morning approx 0500. According to review of chart, patient admits to evening provider that her drinking has worsened d/t increased isolation sec to the COVID-19 pandemic. Exact daily use unknown. Patient asleep during morning multidisciplinary rounds. According to Dr Cruz, patient has abd bacterial peritonitis and is in active DTs, UR FRANCISCA Molina explains patient will be inpt status, expected to remain here for treatment of this infection and medical management through ETOH w/d. CIWA at 1600 is 6. This INTERVENTIONAL NEURORADIOLOGIST unable to complete bedside GEOVANI assessment, patient cannot engage in conversation today d/t symptoms of ETOH w/d. Assessment to be done either by RN HOMEP Tuesday or Tuesday by INTERVENTIONAL NEURORADIOLOGIST. Likely outpt resources will be offered and DC home once medically cleared. Following closely. ANAHI Dallas
[2020-07-19] MEDS: LORazepam 2 MG/ML INJ IV ×4 (17:15→18:45)
[2020-07-19] MEDS: PHENobarbital 130 MG/ML VIAL IV (17:40)
[2020-07-19] MEDS: PIPERACILLIN-TAZO 3.375 GM/50 ML FROZ.PIGGY IV (17:55)
--- NOTE | 2020-07-19 17:59 | DI.RAD.S_ITS ---
PROCEDURE: XR CHEST 1V INDICATIONS: Aspiration TECHNIQUE: One view of the chest was acquired. COMPARISON: [facility], CR, XR CHEST 1V, 07/18/2020, 19:24. FINDINGS: Surgical changes and devices: None. Lungs and pleura: Lungs are clear. No pleural effusions or pneumothorax. Mediastinum: Mediastinal contours appear normal. Heart size is normal. Bones and chest wall: No suspicious bony lesions. Overlying soft tissues appear unremarkable. IMPRESSION: No acute finding. Dictated by: Christian Gonzalez M.D. on 07/19/2020 at 18:28 Approved by: Christian Gonzalez M.D. on 07/19/2020 at 18:28
[2020-07-19 18:10] LABS: Add Manual Diff / Slide Review NO; Basophils Absolute Auto 0 /uL (0-100); Basophils Percent Auto 0.1 % (0-2); Eosinophils Absolute Auto 0 /uL (0-450); Eosinophils Percent Auto 0.1 % (2-4); Hematocrit 26.1 % (36-46); Hemoglobin 8.6 g/dL (12.0-16.0); Lymphocytes Absolute Auto 300 /uL (1100-4500); Lymphocytes Percent Auto 2.3 % (25-40); Mean Corpuscular Hemoglobin 26.7 PG (26-34); Mean Corpuscular Volume 80.9 fL (80-100); Monocytes Absolute Auto 300 /uL (0-900); Monocytes Percent Auto 2.5 % (3-14); Neutrophils Absolute Auto 12300 /uL (1500-7000); Platelet Count 236 X10^3/uL (150-400); Red Blood Cell Count 3.22 X10^6/uL (4.0-5.2); Red Cell Distribution Width 17.3 % (11.6-14.8)
[2020-07-19] MEDS: ONDANSETRON 4 MG/2 ML INJ IV (18:15)
[2020-07-19 18:16] LABS: White Blood Cell Count 12.9 X10^3/uL (4.5-11.0)
[2020-07-19 18:17] LABS: INR 1.3 (0.9-1.3)
[2020-07-19 18:22] LABS: Prothrombin Time 15.4 SECONDS (10.1-12.7)
[2020-07-19 18:47] LABS: BUN Creatinine Ratio 18.6 (6-22); Blood Urea Nitrogen 11 mg/dL (7-17); Calcium 8.5 mg/dL (8.4-10.2); Carbon Dioxide 24 mmol/L (22-32); Chloride 98 mmol/L (98-107); Estimated Glomerular Filt Rate > 60.0 mL/min (>60); Glucose 148 mg/dL (80-110); HEMOLYSIS < 15 (0-50); Magnesium 2.7 mg/dL (1.6-2.3); Potassium 3.9 mmol/L (3.4-5.1)
[2020-07-19 18:48] LABS: Sodium 130 mmol/L (137-145)
--- NOTE | 2020-07-19 18:48 | PM.EVENT ---
Event Note Date Patient Seen: 07/19/20 Event Note: The patient was admitted for alcohol withdrawal. CIWA scores were highly variable throughout the day with her highest CIWA score 18 and she was appropriately treated with Ativan. Librium was started at 50 mg every 6 hours in the early afternoon around 1500. She was initially admitted for abdominal pain and went into alcohol withdrawal while in the ED. She did not have abdominal pain on clinical exam today. There was some concern for SBP due to ascites on exam. Abdominal ultrasound was ordered which did not demonstrate free fluid in the abdomen. Patient's WBC was elevated at 12.9 and added procalcitonin to morning labs which was elevated at 2.79. The patient was having labored breathing which appeared to be due to mechanical obstruction from abdominal distension. Started furosemide 20 mg IV x1 and spironolactone 25 mg to treat ascites. At approximately 1718 a rapid response was called. Patient's was found to have oxygen saturation 68% and appeared cyanotic. She was placed on a non-rebreather with 15 L of oxygen. Patient was tachycardic with heart rate in the 120's. She was tremulous with what initially was thought to be rigors. Patient was not having evident seizure activity initially. Full set of labs were drawn including blood culture. Once blood cultures were obtained Zosyn 3.375 g every 6 hours was started. Received 1 L normal saline bolus. The patient reported that she was cold and was minimally responsive due to shaking. Approximately 10 minutes into rapid response the patient began having evident seizure activity. Patient received 4 mg IV Ativan and ED physician was called to bedside. The patient then was given phenobarbital 130 mg IV x1. A nasal trumpet was inserted to help maintain airway. Discussed the patient's code status earlier in the day in which she informed me that she was DNR/DNI and would not want heroic measures taken if her heart were to stop or she were to stop breathing but she would want everything else done if it could save her life. Continued to support the patient and she received 4 mg of additional IV Ativan. Seizure activity was abated and the patient actively seized for approximately 1 hour. She continued to require 1:1 nursing care and observation to assure she maintained an adequate airway. Sargent catheter placed. Chest x-ray was taken for possible aspiration and did not demonstrate any acute cardiopulmonary process. Continued NT and oral suctioning without evidence of emesis or aspiration. She received Zofran for prevention of vomiting as there were several time she appeared to be nauseated. Blood glucose 169. Plan to transfer for higher level of care and possibly Precedex to treat alcohol withdrawal and provide minimal sedation. Patient currently stable. Vital signs: Heart rate 97, BP 122/60, respiratory rate 23 on 10 L non-rebreather with oxygen saturation 98%.
[2020-07-19 18:57] LABS: Troponin I < 0.012 ng/mL (0.01-0.034)
[2020-07-19 19:03] LABS: Fractionated Inspired Oxygen 100; HCO3 ABG 23 mmol/L (22-26); Oxygen Saturation ABG 100 % (95-100); PCO2 ABG 35.4 mmHg (35-45); PO2 ABG 216 mmHg (80-100); TCO2 ABG 24 mmol/L (21-31); pH ABG 7.42 (7.35-7.45)
--- NOTE | 2020-07-19 19:04 | PC.NURSE ---
Addendum entered by Marcela Stark R.N. 07/19/20 21:41: 2000- Report given to ambulance personnel. Patient stable at the time of discharge. Addendum entered by Marcela Stark R.N. 07/19/20 20:08: 2000- Attempted to call family to inform them that the patient has been transferred. There is no answer at the phone number listed. Addendum entered by Marcela Stark R.N. 07/19/20 19:30: 1930- Report called to FRANCISCA Reynoso at [facility]. Patient to be transferred to ICU room 2009. Original Note: 1718- Rapid Response called. Patient saturation 68% in full body tremors/Seizure. Heart rate elevated 120's. Patient has cyanosis and decreased loc. Dr. Cruz at bedside. Patient given a total of 8mg IV Ativan, 130 mg Phenobarbitol, and Zosyn started per order. 1 liter of NS given. Sargent catheter placed. CXR done. Blood culture x1 done. Blood sugar 169. Patient is DNR/DNI. Patient actively seized for one hour. 1914- Plan to transfer to higher level of care. Patient currently stable. Heart rate 97. BP 122/60, respiratory rate 23 saturation is 98. Nasal trumpet in place for periodic NT suction.
[2020-07-19 19:08] LABS: Fractionated Inspired Oxygen 100; HCO3 ABG 23 mmol/L (22-26); Oxygen Saturation ABG 100 % (95-100); PO2 ABG 223 mmHg (80-100); TCO2 ABG 24 mmol/L (21-31); pH ABG 7.39 (7.35-7.45)
--- NOTE | 2020-07-19 19:44 | PM.DS.1 ---
History of Present Illness History of Present Illness Date Patient Seen: 07/18/20 Chief complaint: thinks bleeding ulcer Narrative: Written by Ingris WU: Luzma Oquendo is a pleasant 79 y.o. female resident of [facility] with hypertension, hyperlipidemia, hypothyroidism and depression who presented with abdominal pain and had one episode of vomiting while in the ED. She states she had one isolated dark stool 2 weeks ago. She thought she may have a stomach ulcer. During her visit with the ED provider, she began to tremor, then admitted to the provider that she was a heavy drinker and had not drank in a day and a half and was diagnosed with alcohol withdrawal. She states she has depression and that with the COVID-19 social distancing, her drinking has worsened. She denies fever, sweats or chills, shortness of breath, chest pain, dysurea, diarrhea or constipation. In the ED the CT of the abdomen and chest reported possible mild colitis, but did not report any ulcerations. Temperature was 98.9?, blood pressure 142/64, heart rate 90 respiratory rate of 12 oxygen saturation 97% on room air, she weighs 102.6 kg BMI of 38.8. She does have a elevated WBC at 16,000, RBC 3.9, hemoglobin 10.5, hematocrit 32.2, platelet count 184, she does have a significant left shift with a neutrophil count of 15,000, coag studies are normal, sodium 135, potassium 4.1, chloride 97, bicarb 25, BUN 14, creatinine 0.62, GFR is greater than 60, she has a glucose of 157, total bilirubin is 1.9, AST 884, ALT 571, alk-phos 183, ammonia is 12, lipase is pending, covid -19 is negative, urinalysis is negative for a UTI. Discharge Providers Provider Date of admission: 07/18/20 20:46 Discharge Date: 07/19/20 Primary care physician: Sachi Escalona MD Discharge provider: Zonia Cruz DO Summary Hospital Course Discharge Diagnosis: 1. Acute alcohol withdrawal with DTs and alcohol withdrawal seizure, present on admission. Active. 2. Acute alcoholic hepatitis, present on admission. Active. 3. Possible acute SBP, present on admission. Active. 4. Normocytic anemia, acuity unknown, present on admission. Stable. 5. Hypothyroidism, chronic, present on admission. Stable. 6. Hyperlipidemia, chronic, present on admission. Stable. 7. Depression, chronic, present on admission. Stable Hospital Course: Luzma Oquendo is a 79-year-old female resident of [facility] with a past medical history significant for hypertension, hyperlipidemia, hypothyroidism and depression who presented to the ED with epigastric abdominal pain x1 week. 1. Acute alcohol withdrawal with DTs and alcohol withdrawal seizure, present on admission. Active. -Patient presented with intermittent epigastric abdominal pain x1 week with nausea. Patient had 1 episode of vomiting in ED. Patient had 1 isolated dark stool 2 weeks prior to admission. -Patient endorses heavy alcohol intake for last 2 years with approximately 6 glasses of wine a night. Last drink was 1.5 days prior to admission. Patient denies history of alcohol withdrawal, DTs or alcohol withdrawal seizures. -Started and continued CIWA protocol. Highest CIWA score 18. Continued Ativan per CIWA protocol. Started Librium 50 mg every 6 hours. Continue multivitamin daily, folic acid 1 mg daily and thiamine 100 mg daily. -received 1 L banana bag and 1 L NS in ED. -Patient began having alcohol withdrawal seizure which lasted approximately 1 hour and was abated. Please see separate event note. -Transferred patient to [facility] for higher level of care to treat alcohol withdrawal, maintain airway in lieu of code status DNR/DNI with Precedex for minimal sedation and treat alcohol withdrawal. 2. Acute alcoholic hepatitis, status appetite is present on admission. Active. -Synthetic liver function appears to be intact with platelets 261, INR 1.0 and albumin 4.9. -Initial LFTs: Total bilirubin 1.9, AST 884, ALT 571 and alkaline phosphatase 183. LFTs improved with IV fluid hydration: Total bilirubin 2.9, AST 437, ALT 436, and alkaline phosphatase 128. -Ammonia level normal at 12. -Acute hepatitis panel pending. -Continued to monitor LFTs daily. 3. Possible acute SBP, present on admission. Active. -Initial WBC 16.0 and trended down to 12.5 without antibiotic therapy. Procalcitonin elevated at 2.79. -CT abdomen and pelvis with contrast demonstrated mild dilatation of the intrahepatic and extrahepatic bile ducts is most likely secondary to the prior cholecystectomy and mild thickening of the wall the colon may be related to underdistention or mild nonspecific colitis. No obvious source of infection. -Abdominal ultrasound did not demonstrate ascites with increased liver echogenicity and mild biliary dilatation in setting of previous cholecystectomy. If clinically appropriate, an MRCP could be considered for further evaluation (assuming that there is no contraindication to MRI). -Lipase normal at 55. -Obtained blood cultures x2, pending. Urinalysis negative. Chest x-ray did not demonstrate any acute cardiopulmonary process. COVID-19 negative. -Started Zosyn 3.375 g every 6 hours. 4. Normocytic anemia, acuity unknown, present on admission. Stable. -Initial hemoglobin 10.5 and hematocrit 32.2. H&H trended down likely due to IV fluid administration. No overt signs of bleeding. Stool guaiac negative. -Continued to monitor H&H daily. 5. Hypothyroidism, chronic, present on admission. Stable. -Continued home dose of levothyroxine 75 mcg daily 6. Hyperlipidemia, chronic, present on admission. Stable. -Continued home atorvastatin 20 mg daily at bedtime. 7. Depression, chronic, present on admission. Stable -Continued sertraline 200 mg daily. Exam Vital Signs (past 8 hours): - 07/19/20 12:00 07/19/20 12:05 07/19/20 14:16 Temperature 98.5 F Pulse Rate 86 92 H Respiratory Rate 21 24 Blood Pressure 127/60 127/60 Pulse Oximetry 97 96 07/19/20 14:50 07/19/20 16:00 07/19/20 18:45 Temperature 99.5 F Pulse Rate 80 84 Respiratory Rate 36 H 26 H 28 H Blood Pressure 134/64 132/60 Pulse Oximetry 94 99 07/19/20 19:10 07/19/20 19:26 Temperature 96.8 F L Pulse Rate 98 H Respiratory Rate 20 20 Blood Pressure 122/60 Pulse Oximetry 97 98 Oxygen Delivery Method Non -Rebreather Oxygen Flow Rate 10 Narrative Exam Narrative: General: Elderly female lying in bed, sedated, maintaining and protecting airway HEENT: Normocephalic, atraumatic. Eyes shut but pupils are round, equal and reactive to light. Nasal trumpet in place. Neck: Supple. No lymphadenopathy or thyromegaly. Cardiovascular: Regular rhythm, tachycardic, without murmurs, rubs, or gallops appreciated. Pulmonary: Upper airway rhonchi otherwise clear to auscultation. Non-rebreather mask in place. Abdomen: Soft, protuberant, nontender, moderate distension. Ascites. Extremities: No clubbing, cyanosis, or edema. Skin: Normal temperature, turgor, and texture; no rash, ulcers, or subcutaneous nodules appreciated. Neurological: Cranial nerves grossly intact. No longer seizing. Objective Labs Result Diagrams: 07/19/20 17:50 07/19/20 17:50 Labs: Laboratory Results - last 24 hr 07/18/20 07/18/20 07/18/20 19:27 20:42 21:15 WBC RBC Hgb Hct MCV MCH MCHC RDW Plt Count Neut % (Auto) Lymph % (Auto) Gibson % (Auto) Eos % (Auto) Baso % (Auto) Neut # (Auto) Lymph # (Auto) Gibson # (Auto) Eos # (Auto) Baso # (Auto) PT 11.6 INR 1.0 APTT 28 ABG pH ABG pCO2 ABG pO2 ABG HCO3 ABG Total CO2 ABG O2 Saturation ABG Base Excess FiO2 Sodium Potassium Chloride Carbon Dioxide BUN Creatinine Estimated GFR BUN/Creatinine Ratio Glucose Hemoglobin A1c Calcium Magnesium Total Bilirubin AST ALT Alkaline Phosphatase Ammonia 12 Troponin I Total Protein Albumin Globulin Albumin/Globulin Ratio Triglycerides Cholesterol LDL Cholesterol, Calc HDL Cholesterol Lipase Procalcitonin TSH Urine RBC Urine WBC Urine Bacteria Ur Culture Indicated? Nasal Screen MRSA (PCR) COVID-19 PCR Negative 07/18/20 07/19/20 07/19/20 22:35 01:20 04:44 WBC 12.5 H RBC 3.32 L Hgb 8.8 L Hct 27.2 L MCV 81.9 MCH 26.5 MCHC 32.4 RDW 17.2 H Plt Count 261 Neut % (Auto) 96.7 H Lymph % (Auto) 1.7 L Gibson % (Auto) 1.5 L Eos % (Auto) 0.0 L Baso % (Auto) 0.1 Neut # (Auto) 42902 H Lymph # (Auto) 200 L Gibson # (Auto) 200 Eos # (Auto) 0 Baso # (Auto) 0 PT INR APTT ABG pH ABG pCO2 ABG pO2 ABG HCO3 ABG Total CO2 ABG O2 Saturation ABG Base Excess FiO2 Sodium Potassium Chloride Carbon Dioxide BUN Creatinine Estimated GFR BUN/Creatinine Ratio Glucose Hemoglobin A1c Calcium Magnesium Total Bilirubin AST ALT Alkaline Phosphatase Ammonia Troponin I Total Protein Albumin Globulin Albumin/Globulin Ratio Triglycerides Cholesterol LDL Cholesterol, Calc HDL Cholesterol Lipase Procalcitonin TSH Urine RBC 0-1/hpf Urine WBC None seen Urine Bacteria None seen Ur Culture Indicated? Cult not indicated Nasal Screen MRSA (PCR) Negative for mrsa COVID-19 PCR 07/19/20 07/19/20 07/19/20 04:44 04:44 04:44 WBC RBC Hgb Hct MCV MCH MCHC RDW Plt Count Neut % (Auto) Lymph % (Auto) Gibson % (Auto) Eos % (Auto) Baso % (Auto) Neut # (Auto) Lymph # (Auto) Gibson # (Auto) Eos # (Auto) Baso # (Auto) PT INR APTT ABG pH ABG pCO2 ABG pO2 ABG HCO3 ABG Total CO2 ABG O2 Saturation ABG Base Excess FiO2 Sodium 134 L Potassium 4.2 Chloride 100 Carbon Dioxide 28 BUN 10 Creatinine 0.62 Estimated GFR > 60.0 BUN/Creatinine Ratio 16.1 Glucose 147 H Hemoglobin A1c 5.8 Calcium 8.8 Magnesium 2.8 H Total Bilirubin 2.9 H AST 437 H ALT 436 H Alkaline Phosphatase 128 H Ammonia Troponin I Total Protein 6.6 Albumin 3.9 Globulin 2.7 Albumin/Globulin Ratio 1.4 Triglycerides 62 Cholesterol 161 LDL Cholesterol, Calc 56 HDL Cholesterol 93 H Lipase Procalcitonin TSH 1.58 Urine RBC Urine WBC Urine Bacteria Ur Culture Indicated? Nasal Screen MRSA (PCR) COVID-19 PCR 07/19/20 07/19/20 07/19/20 04:44 15:23 17:25 WBC RBC Hgb Hct MCV MCH MCHC RDW Plt Count Neut % (Auto) Lymph % (Auto) Gibson % (Auto) Eos % (Auto) Baso % (Auto) Neut # (Auto) Lymph # (Auto) Gibson # (Auto) Eos # (Auto) Baso # (Auto) PT INR APTT ABG pH 7.42 ABG pCO2 35.4 ABG pO2 216 H ABG HCO3 23 ABG Total CO2 24 ABG O2 Saturation 100 ABG Base Excess -1.0 FiO2 100 Sodium Potassium Chloride Carbon Dioxide BUN Creatinine Estimated GFR BUN/Creatinine Ratio Glucose Hemoglobin A1c Calcium Magnesium Total Bilirubin AST ALT Alkaline Phosphatase Ammonia Troponin I Total Protein Albumin Globulin Albumin/Globulin Ratio Triglycerides Cholesterol LDL Cholesterol, Calc HDL Cholesterol Lipase 55 Procalcitonin 2.79 H TSH Urine RBC Urine WBC Urine Bacteria Ur Culture Indicated? Nasal Screen MRSA (PCR) COVID-19 PCR 07/19/20 07/19/20 07/19/20 17:50 17:50 17:50 WBC 12.9 H RBC 3.22 L Hgb 8.6 L Hct 26.1 L MCV 80.9 MCH 26.7 MCHC 33.0 RDW 17.3 H Plt Count 236 Neut % (Auto) 95.0 H Lymph % (Auto) 2.3 L Gibson % (Auto) 2.5 L Eos % (Auto) 0.1 L Baso % (Auto) 0.1 Neut # (Auto) 94435 H Lymph # (Auto) 300 L Gibson # (Auto) 300 Eos # (Auto) 0 Baso # (Auto) 0 PT 15.4 H INR 1.3 APTT ABG pH ABG pCO2 ABG pO2 ABG HCO3 ABG Total CO2 ABG O2 Saturation ABG Base Excess FiO2 Sodium 130 L Potassium 3.9 Chloride 98 Carbon Dioxide 24 BUN 11 Creatinine 0.59 Estimated GFR > 60.0 BUN/Creatinine Ratio 18.6 Glucose 148 H Hemoglobin A1c Calcium 8.5 Magnesium 2.7 H Total Bilirubin AST ALT Alkaline Phosphatase Ammonia Troponin I < 0.012 Total Protein Albumin Globulin Albumin/Globulin Ratio Triglycerides Cholesterol LDL Cholesterol, Calc HDL Cholesterol Lipase Procalcitonin TSH Urine RBC Urine WBC Urine Bacteria Ur Culture Indicated? Nasal Screen MRSA (PCR) COVID-19 PCR 07/19/20 18:28 WBC RBC Hgb Hct MCV MCH MCHC RDW Plt Count Neut % (Auto) Lymph % (Auto) Gibson % (Auto) Eos % (Auto) Baso % (Auto) Neut # (Auto) Lymph # (Auto) Gibson # (Auto) Eos # (Auto) Baso # (Auto) PT INR APTT ABG pH 7.39 ABG pCO2 37.0 ABG pO2 223 H ABG HCO3 23 ABG Total CO2 24 ABG O2 Saturation 100 ABG Base Excess -2.0 FiO2 100 Sodium Potassium Chloride Carbon Dioxide BUN Creatinine Estimated GFR BUN/Creatinine Ratio Glucose Hemoglobin A1c Calcium Magnesium Total Bilirubin AST ALT Alkaline Phosphatase Ammonia Troponin I Total Protein Albumin Globulin Albumin/Globulin Ratio Triglycerides Cholesterol LDL Cholesterol, Calc HDL Cholesterol Lipase Procalcitonin TSH Urine RBC Urine WBC Urine Bacteria Ur Culture Indicated? Nasal Screen MRSA (PCR) COVID-19 PCR Discharge Plan Discharge Plan Disposition: [facility] Discharge orders & Medications Follow up/Referrals: Sachi Escalona MD [Primary Care Provider] - Discharge Data Primary Care Provider: Sachi Escalona Attending Provider: Ingris Garcia Admit Date/Time: 07/18/20 20:46 Quality VTE Deep Vein Thrombosis/Pulmonary Embolism Present on Admission: No
[2020-07-20 07:43] LABS: HBsAg Screen Negative (Negative); Hepatitis A Antibody IgM Negative (Negative); Hepatitis B Core Antibody IgM Negative (Negative); Hepatitis C Antibody <0.1 s/co ratio (0.0-0.9)
[2020-07-20 08:41] LABS: Acinetobacter baumannii Not Detected (Not Detect); Enterococcus species Not Detected (Not Detect); Listeria monocytogenes Not Detected (Not Detect); Methicillin-resistant gene Not Detected (Not Detect); Staphylococcus species Not Detected (Not Detect); Streptococcus agalactiae (Gr B Not Detected (Not Detect); Streptococcus pneumonia Not Detected (Not Detect); Streptococcus pyogenes (Gr A) Not Detected (Not Detect); Streptococcus species Not Detected (Not Detect); Vancomycin-rest genes A/B Not Detected (Not Detect)
[2020-07-20 08:42] LABS: Candida albicans Not Detected (Not Detect); Candida glabrata Not Detected (Not Detect); Candida krusei Not Detected (Not Detect); Candida parapsilosis Not Detected (Not Detect); Candida tropicalis Not Detected (Not Detect); E. coli Not Detected (Not Detect); Enterobacter cloacae complex Not Detected (Not Detect); Enterobacteriaceae species Detected (Not Detect); Haemophilus influenzae Not Detected (Not Detect); KPC (carbapenem-resist gene) Not Detected (Not Detect); Neisseria meningitidis Not Detected (Not Detect); Proteus species Not Detected (Not Detect); Pseudomonas aeruginosa Not Detected (Not Detect); Serratia marcescens Not Detected (Not Detect)
== END 2020-07-19 20:00 | disposition short-term general hospital (02) | DRG 896 ==
LOC: ED 18:54 → ICU 21:35 → AC 07-21 07:23
PROVIDERS: Emergency Medicine; Internal Medicine; Admitting Provider Nurse Practitioner Family; Emergency Provider Emergency Medicine; PCP Family Medicine; Referring Provider Family Medicine; Visit Provider Nurse Practitioner Family
DX: F10.231 Alcohol dependence with withdrawal delirium (principal); K65.2 Spontaneous bacterial peritonitis; G40.89 Other seizures; K70.10 Alcoholic hepatitis without ascites; E78.5 Hyperlipidemia, unspecified; E03.9 Hypothyroidism, unspecified; D64.9 Anemia, unspecified; F32.9 Major depressive disorder, single episode, unspecified; Z87.891 Personal history of nicotine dependence; Z11.59 Encounter for screening for other viral diseases; R06.02 Shortness of breath; R10.13 Epigastric pain
CPT/HCPCS: 36415; 36600; 71045; 74177; 76700; 80048; 80053; 80061; 80074; 81015; 82140; 82550; 82805; 83036; 83690; 83735; 84145; 84443; 84484; 85025; 85610; 85730; 87040; 87150; 87186; 87205; 87635; 87797; 93005; 93010; 94762; 96361; 96374; 96375; 99284; G0378; J1940; J2060; J2405; J2543; J2560; J3475